=== PATIENT | female | born 2005 | race African-American/Black ===

== ENCOUNTER 2025-01-22 01:51 | Emergency (ER) | payer OTHER ==
[~2025-01-22] VITALS: Ht 160 cm; Wt 59.1 kg
[2025-01-22 01:52] VITALS: TEMP 98.4
[2025-01-22 02:20] LABS: PLATELET COUNT (AUTO) 316 K/uL (150-450); RED BLOOD CELL COUNT(AUTO) 4.45 MIL/uL (4.00-5.20); RED CELL DISTRIBUTION WIDTH 13.5 % (11.5-14.5); WHITE BLOOD COUNT (AUTO) 7.3 K/uL (4.5-11.0)
[2025-01-22 02:34] LABS: CALCIUM, TOTAL 8.9 mg/dL (8.8-10.5); GLUCOSE,RANDOM 106 mg/dL (70-110); SODIUM SERUM 143 mmol/L (136-145); UREA NITROGEN, BLOOD 4 mg/dL (7-18)
[2025-01-22 02:39] LABS: CREATININE 0.63 mg/dL (0.60-1.30); GLOMERULAR FILTR. RATE CALC > 60 mL/min (>60)
[2025-01-22] MEDS: SODIUM CHLORIDE 0.9% 1,000 ML IV ONE (03:38)
[2025-01-22 05:29] VITALS: BP 115/65; PULSE 79; RESP 14; O2SAT 100
== END 2025-01-22 05:43 | disposition home or self-care (01) ==
LOC: EMS 01:51
DX: N92.6 Irregular menstruation, unspecified (principal); N89.8 Other specified noninflammatory disorders of vagina
CPT/HCPCS: 99283; 96360; 96361; 80048; 84702; 85025; 86850; 86900; 86901; 36415; J7030